=== PATIENT | female | born 1970 | race Caucasian/White ===

== ENCOUNTER 2022-08-27 12:16 | Emergency (ER) | payer BC ==
[~2022-08-27] VITALS: Ht 162.6 cm; Wt 63.5 kg
--- NOTE | 2022-08-27 12:30 | NUR ---
Dr Valerio at the bedside for MSE.
[2022-08-27] MEDS ORDERED: ACETAMINOPHEN ES 500 MG TABLET PO ONE (12:45)
[2022-08-27] MEDS ORDERED: KETOROLAC TROMETHAMINE 30 MG INJ IM ONE (12:45)
[2022-08-27] MEDS ORDERED: LIDOCAINE 5% PATCH TD ONE ×2 (12:45→12:46)
[2022-08-27] MEDS ORDERED: CYCLOBENZAPRINE HCL 10 MG TABLET PO ONE (12:45)
[2022-08-27] MEDS ORDERED: CYCLOBENZAPRINE HCL 10 MG TABLET ONE (12:46)
[2022-08-27] MEDS ORDERED: KETOROLAC TROMETHAMINE 30 MG INJ ONE (12:46)
[2022-08-27] MEDS ORDERED: ACETAMINOPHEN ES 500 MG TABLET ONE (12:46)
[2022-08-27] MEDS ORDERED: CYCL10TA9 PO (13:16)
[2022-08-27] MEDS ORDERED: METH4TAB3 PO (13:16)
--- NOTE | 2022-08-27 13:48 | NUR ---
Pt states feeling better and wishes to go home.
[2022-08-27 13:51] VITALS: BP 118/60
--- NOTE | 2022-08-27 13:51 | NUR ---
Patient discharged to home in stable condition. Written and verbal after care instructions given. Patient verbalizes understanding of instructions. Stressed follow up or return to ER for worsening s/s.
== END 2022-08-27 13:52 | disposition home or self-care (01) ==
LOC: ER 12:16
DX: M54.41 Lumbago with sciatica, right side (principal); Z79.899 Other long term (current) drug therapy
CPT/HCPCS: 99284; 96372; J1885; A4663; A9150